=== PATIENT | male | born 1950 | race Caucasian/White ===

== ENCOUNTER 2022-03-09 10:00 | Inpatient (IN) | payer MEDICARE, OTHER ==
[~2022-03-09] VITALS: Ht 185.4 cm; Wt 136.1 kg
[2022-03-09] MEDS ORDERED: SPIRONOLACTONE25 MG PO (10:38)
[2022-03-09 10:39] LABS: BASOPHILS % 0.2 % (0.0-1.0); HEMOGLOBIN 10.9 g/dL (14.0-18.0); LYMPHOCYTES # (AUTO) 0.6 (1.0-3.2); LYMPHOCYTES % 10.7 % (18.0-39.1); MEAN CORPUSCULAR HEMOGLOBIN 29.9 pg (28-32); MEAN CORPUSCULAR VOLUME 90.4 fL (81-99); MONOCYTES # (AUTO) 0.6 (0.2-0.8); MONOCYTES % 11.5 % (4.4-11.3); PLATELET COUNT 119 x10e3/uL (140-360); RED BLOOD COUNT 3.65 x10e6/uL (4.3-5.7); RED CELL DISTRIBUTION WIDTH 12.2 % (11.7-14.4)
[2022-03-09] MEDS ORDERED: METOPROLOL SUCC50 MG PO (10:39)
[2022-03-09] MEDS ORDERED: DOXAZOSIN MESYLA2 MG PO (10:39)
[2022-03-09] MEDS ORDERED: ATORVASTATIN CA20 MG PO (10:40)
[2022-03-09] MEDS ORDERED: DIOVAN80 MG PO (10:40)
[2022-03-09] MEDS ORDERED: WEGOVY2.4 MG/0.7 (10:44)
[2022-03-09 10:55] LABS: ALBUMIN 2.8 g/dL (3.5-5.0); ALBUMIN/GLOBULIN RATIO 0.7 (0.8-2.0); ANION GAP 16.9 mmol/L (8-16); CALCIUM 7.6 mg/dL (8.4-10.2); CREATININE, SERUM 3.13 mg/dL (0.72-1.25); POTASSIUM 4.9 mmol/L (3.5-5.1)
[2022-03-09 11:16] LABS: FREE T4 (FREE THYROXINE) 0.84 ng/dL (0.8-1.8); THYROID STIMULATING HORMONE 2.057 uIU/mL (0.350-4.940)
[2022-03-09] MEDS: SODIUM CHLORIDE 0.9% 1000ML 1,000 ML IV SCH ×2 (11:45→21:10)
[2022-03-09 14:08] VITALS: BP 84/50
[2022-03-09 15:11] VITALS: BP 84/50
[2022-03-09 16:54] VITALS: BP 97/63
[2022-03-09 19:30] VITALS: BP 116/61
[2022-03-09 20:00] VITALS: BP 116/67
[2022-03-10] VITALS (9 sets, daily range): BP systolic 98–142; BP diastolic 57–79
[2022-03-10 03:51] LABS: CLARITY,URINE SL CLOUDY (CLEAR); COLOR,URINE YELLOW (YELLOW)
[2022-03-10 03:52] LABS: KETONES,URINE TRACE (NEGATIVE); LEUKOCYTE ESTERASE ,URINE NEGATIVE (NEGATIVE); NITRITE,URINE NEGATIVE (NEGATIVE); PROTEIN,URINE DIPSTICK 1+ (NEGATIVE); URINE UROBILINOGEN 0.2 mg/dL (0.2 - 1)
[2022-03-10 03:53] LABS: BACTERIA,URINE FEW /HPF; EPITHELIAL CELLS,URINE RARE /LPF; RBC,URINE 0-5 /HPF (0-5); WBC,URINE (MAN) 0-5 /HPF (0-5)
[2022-03-10 03:54] LABS: AMORPHOUS SEDIMENT,URINE MODERATE (FEW)
[2022-03-10 07:06] LABS: BASOPHILS % 0.5 % (0.0-1.0); HEMATOCRIT 29.9 % (38.2-49.6); HEMOGLOBIN 10.2 g/dL (14.0-18.0); LYMPHOCYTES # (AUTO) 0.6 (1.0-3.2); LYMPHOCYTES % 15.5 % (18.0-39.1); MEAN CORPUSCULAR HEMOGLOBIN 30.4 pg (28-32); MEAN CORPUSCULAR HGB CONC 34.1 g/dL (31-35); MONOCYTES # (AUTO) 0.4 (0.2-0.8); MONOCYTES % 11.5 % (4.4-11.3); NEUTROPHILS # (AUTO) 2.7 (2.1-6.9); PLATELET COUNT 114 x10e3/uL (140-360); RED BLOOD COUNT 3.36 x10e6/uL (4.3-5.7); RED CELL DISTRIBUTION WIDTH 12.3 % (11.7-14.4)
[2022-03-10 07:21] LABS: ANION GAP 16.8 mmol/L (8-16); CALCIUM 7.7 mg/dL (8.4-10.2); CREATININE, SERUM 3.51 mg/dL (0.72-1.25); POTASSIUM 4.8 mmol/L (3.5-5.1)
[2022-03-10] MEDS: SODIUM CHLORIDE 0.9% 1000ML 1,000 ML IV SCH ×2 (08:30→21:16)
[2022-03-10 15:06] LABS: BASOPHILS % 0.3 % (0.0-1.0); HEMATOCRIT 32.3 % (38.2-49.6); HEMOGLOBIN 10.7 g/dL (14.0-18.0); LYMPHOCYTES # (AUTO) 0.6 (1.0-3.2); LYMPHOCYTES % 15.5 % (18.0-39.1); MEAN CORPUSCULAR HGB CONC 33.1 g/dL (31-35); MEAN CORPUSCULAR VOLUME 90.5 fL (81-99); MONOCYTES # (AUTO) 0.4 (0.2-0.8); MONOCYTES % 10.6 % (4.4-11.3); NEUTROPHILS # (AUTO) 2.8 (2.1-6.9); NEUTROPHILS % 73.1 % (38.7-80.0); PLATELET COUNT 105 x10e3/uL (140-360); RED BLOOD COUNT 3.57 x10e6/uL (4.3-5.7); RED CELL DISTRIBUTION WIDTH 12.6 % (11.7-14.4)
[2022-03-10 18:25] LABS: CREATININE,URINE RANDOM 157.14 mg/dL (63-166); TOTAL PROTEIN, URINE 13.5 mg/dL (1-14)
[2022-03-10 19:06] LABS: EOSINOPHIL SMEAR,URINE NONE SEEN (NONE SEEN)
[2022-03-11] VITALS: BP 119/69
[2022-03-11 04:00] VITALS: BP 113/58
[2022-03-11 06:01] LABS: ANION GAP 15.6 mmol/L (8-16); CALCIUM 7.4 mg/dL (8.4-10.2); CREATININE, SERUM 2.85 mg/dL (0.72-1.25); POTASSIUM 4.6 mmol/L (3.5-5.1)
[2022-03-11 08:21] VITALS: BP 106/62
[2022-03-11 12:10] VITALS: BP_SYST 106; BP_SYST 115; BP_DIAS 62; BP_DIAS 63
[2022-03-11 16:44] VITALS: BP 104/60
[2022-03-11 20:00] VITALS: BP 131/63
[2022-03-12] VITALS (8 sets, daily range): BP systolic 101–163; BP diastolic 51–75
[2022-03-12 05:26] LABS: BASOPHILS % 0.4 % (0.0-1.0); HEMATOCRIT 30.5 % (38.2-49.6); HEMOGLOBIN 10.3 g/dL (14.0-18.0); LYMPHOCYTES # (AUTO) 0.7 (1.0-3.2); LYMPHOCYTES % 12.2 % (18.0-39.1); MEAN CORPUSCULAR HEMOGLOBIN 29.9 pg (28-32); MEAN CORPUSCULAR HGB CONC 33.8 g/dL (31-35); MEAN CORPUSCULAR VOLUME 88.4 fL (81-99); MONOCYTES # (AUTO) 0.4 (0.2-0.8); MONOCYTES % 6.5 % (4.4-11.3); NEUTROPHILS # (AUTO) 4.4 (2.1-6.9); NEUTROPHILS % 80.2 % (38.7-80.0); PLATELET COUNT 89 x10e3/uL (140-360); RED BLOOD COUNT 3.45 x10e6/uL (4.3-5.7); RED CELL DISTRIBUTION WIDTH 12.5 % (11.7-14.4)
[2022-03-12 06:01] LABS: ANION GAP 16.3 mmol/L (8-16); CALCIUM 7.4 mg/dL (8.4-10.2); CREATININE, SERUM 2.67 mg/dL (0.72-1.25); POTASSIUM 4.3 mmol/L (3.5-5.1)
[2022-03-12] MEDS ORDERED: DEXTROSE 50% SYRINGE 50 ML IV PRN (09:00)
[2022-03-12] MEDS ORDERED: CEFTRIAXONE 1 GM VIAL ONE (09:27)
[2022-03-12] MEDS ORDERED: METHYLPREDNISOLONE SOD SUCC 40 MG/ML VIAL 1ML IV ONE (09:30)
[2022-03-12] MEDS: GUAIFENESIN/CODEINE 5 ML LIQD PO PRN (10:10)
[2022-03-12] MEDS: INSULIN REGULAR, HUMAN 100 UNIT/1 ML SQ SCH ×3 (11:30→20:49)
[2022-03-13] VITALS (36 sets, daily range): BP systolic 60–126; BP diastolic 28–84
[2022-03-13 05:51] LABS: ANION GAP 14.6 mmol/L (8-16); CALCIUM 7.6 mg/dL (8.4-10.2); CREATININE, SERUM 2.58 mg/dL (0.72-1.25); POTASSIUM 4.6 mmol/L (3.5-5.1)
[2022-03-13] MEDS: GUAIFENESIN/CODEINE 5 ML LIQD PO PRN ×2 (06:50→19:50)
[2022-03-13 08:56] LABS: BASOPHILS % 0.2 % (0.0-1.0); HEMATOCRIT 29.5 % (38.2-49.6); HEMOGLOBIN 9.7 g/dL (14.0-18.0); LYMPHOCYTES # (AUTO) 0.4 (1.0-3.2); LYMPHOCYTES % 7.5 % (18.0-39.1); MEAN CORPUSCULAR HEMOGLOBIN 29.8 pg (28-32); MEAN CORPUSCULAR HGB CONC 32.9 g/dL (31-35); MEAN CORPUSCULAR VOLUME 90.5 fL (81-99); MONOCYTES # (AUTO) 0.3 (0.2-0.8); MONOCYTES % 5.9 % (4.4-11.3); NEUTROPHILS # (AUTO) 4.4 (2.1-6.9); NEUTROPHILS % 85.8 % (38.7-80.0); PLATELET COUNT 84 x10e3/uL (140-360); RED BLOOD COUNT 3.26 x10e6/uL (4.3-5.7); RED CELL DISTRIBUTION WIDTH 12.9 % (11.7-14.4)
[2022-03-13] MEDS ORDERED: METOPROLOL SUCCINATE 50 MG TAB XL PO SCH (09:00)
[2022-03-13] MEDS ORDERED: MIDAZOLAM HCL 2 MG/2 ML VIAL IV STA (10:57)
[2022-03-13] MEDS ORDERED: ACETAMINOPHEN 1000 MG/100 ML IV STA (11:22)
[2022-03-13] MEDS ORDERED: SODIUM CHLORIDE 0.9% 1000ML 1,000 ML ONE (11:27)
[2022-03-13] MEDS: INSULIN REGULAR, HUMAN 100 UNIT/1 ML SQ SCH ×4 (11:30→21:42)
[2022-03-13 11:31] LABS: BASOPHILS % 0.3 % (0.0-1.0); EOSINOPHILS % 0.1 % (0.0-6.0); HEMATOCRIT 31.7 % (38.2-49.6); LYMPHOCYTES # (AUTO) 2.3 (1.0-3.2); LYMPHOCYTES % 20.8 % (18.0-39.1); MEAN CORPUSCULAR HEMOGLOBIN 29.4 pg (28-32); MEAN CORPUSCULAR HGB CONC 31.5 g/dL (31-35); MEAN CORPUSCULAR VOLUME 93.2 fL (81-99); MONOCYTES # (AUTO) 0.7 (0.2-0.8); MONOCYTES % 6.2 % (4.4-11.3); NEUTROPHILS # (AUTO) 7.8 (2.1-6.9); NEUTROPHILS % 71.9 % (38.7-80.0); PLATELET COUNT 116 x10e3/uL (140-360); RED CELL DISTRIBUTION WIDTH 13.2 % (11.7-14.4)
[2022-03-13] MEDS ORDERED: SODIUM CHLORIDE 0.9% 1000ML 1,000 ML IV ONE (11:45)
[2022-03-13 12:01] LABS: CREATINE KINASE MB 7.7 ng/mL (0-5.0)
[2022-03-13 12:25] LABS: ALBUMIN 2.6 g/dL (3.5-5.0); ALBUMIN/GLOBULIN RATIO 0.7 (0.8-2.0); ANION GAP 29.1 mmol/L (8-16); CALCIUM 7.6 mg/dL (8.4-10.2); CREATININE, SERUM 3.35 mg/dL (0.72-1.25); POTASSIUM 5.1 mmol/L (3.5-5.1)
[2022-03-13] MEDS ORDERED: SODIUM CHLORIDE 0.9% 1000ML 1,000 ML IV SCH (12:30)
[2022-03-13] MEDS ORDERED: SODIUM CHLORIDE 0.45% 1,000 ML IV SCH (12:45)
[2022-03-13] MEDS: SODIUM BICARBONATE 8.4% 50 ML in SODIUM CHLORIDE 0.45% 1,000 ML IV SCH ×2 (12:52→20:15)
[2022-03-13] MEDS ORDERED: Vancomycin IV 1 GM in SODIUM CHLORIDE 0.9% 250ML 250 ML IV ONE (13:00)
[2022-03-13] MEDS ORDERED: LIDOCAINE HCL 1% LOCAL INJ 20 ML VIAL ONE (13:45)
[2022-03-13] MEDS ORDERED: HEPARIN SOD (PORCINE) 1000 UNIT/ML SDV ONE ×2 (14:39)
[2022-03-13] MEDS ORDERED: NOREPINEPHRINE 8 MG/D5W 250 ML 250 ML IV SCH (15:15)
[2022-03-13] MEDS ORDERED: MAGNESIUM SULFATE 2GM/50ML 50 ML IV ONE (16:00)
[2022-03-13] MEDS ORDERED: MAGNESIUM OXIDE 400 MG TAB PO ONE (16:20)
[2022-03-13 16:47] LABS: ANION GAP 20.2 mmol/L (8-16); CREATININE, SERUM 3.27 mg/dL (0.72-1.25); POTASSIUM 4.2 mmol/L (3.5-5.1)
[2022-03-13 16:49] LABS: CALCIUM 6.9 mg/dL (8.4-10.2)
[2022-03-13] MEDS ORDERED: HYDROCORTISONE SOD SUCCINATE 100 MG VIAL IV ONE (18:10)
[2022-03-13] MEDS: ACETAMINOPHEN 325 MG TAB PO PRN (19:50)
[2022-03-13] MEDS ORDERED: CALCIUM CHLORIDE 13.6 MEQ in SODIUM CHLORIDE 0.9% 100 ML IV ONE (20:10)
[2022-03-14] VITALS (53 sets, daily range): BP systolic 62–135; BP diastolic 43–116
[2022-03-14] MEDS: SODIUM BICARBONATE 8.4% 50 ML in SODIUM CHLORIDE 0.45% 1,000 ML IV SCH ×3 (03:20→16:43)
[2022-03-14 05:55] LABS: BASOPHILS % 0.2 % (0.0-1.0); HEMATOCRIT 26.9 % (38.2-49.6); HEMOGLOBIN 8.8 g/dL (14.0-18.0); LYMPHOCYTES # (AUTO) 0.3 (1.0-3.2); LYMPHOCYTES % 5.1 % (18.0-39.1); MEAN CORPUSCULAR HEMOGLOBIN 29.3 pg (28-32); MEAN CORPUSCULAR HGB CONC 32.7 g/dL (31-35); MEAN CORPUSCULAR VOLUME 89.7 fL (81-99); MONOCYTES # (AUTO) 0.2 (0.2-0.8); MONOCYTES % 2.8 % (4.4-11.3); NEUTROPHILS # (AUTO) 5.5 (2.1-6.9); NEUTROPHILS % 91.2 % (38.7-80.0); PLATELET COUNT 71 x10e3/uL (140-360); RED CELL DISTRIBUTION WIDTH 13.1 % (11.7-14.4)
[2022-03-14 06:24] LABS: ANION GAP 14.7 mmol/L (8-16); CALCIUM 7.3 mg/dL (8.4-10.2); CREATININE, SERUM 3.03 mg/dL (0.72-1.25); POTASSIUM 4.7 mmol/L (3.5-5.1)
[2022-03-14 08:42] LABS: BAND NEUTROPHILS % (MANUAL) 10 %; LYMPHOCYTES % (MANUAL) 4 % (19-48); METAMYELOCYTES % (MANUAL) 2 % (0-0); MONOCYTES % (MANUAL) 4 % (3.4-9.0); MYELOCYTES % (MANUAL) 1 % (0-0); NEUTROPHILS % (MANUAL) 79 % (40-74)
[2022-03-14] MEDS: INSULIN REGULAR, HUMAN 100 UNIT/1 ML SQ SCH ×4 (08:42→20:49)
[2022-03-14 08:43] LABS: PLATELET MORPHOLOGY COMMENT RARE EDTA CLUMPING
[2022-03-14 08:45] LABS: PLATELET ESTIMATE MODERATELY DECREASED
[2022-03-14] MEDS: GUAIFENESIN/CODEINE 5 ML LIQD PO PRN (13:22)
[2022-03-14] MEDS: ACETAMINOPHEN 325 MG TAB PO PRN (15:46)
[2022-03-14 16:44] LABS: ABG PCO2 23 mmHg (35-45); ABG PH 7.42 (7.35-7.45)
[2022-03-14 16:45] LABS: ABG HCO3 15 mmol/L (22-26); ABG PO2 63 mmHg (80-105); ABG TCO2 16
[2022-03-14] MEDS: NOREPINEPHRINE 8 MG/D5W 250 ML 250 ML IV PRN (17:00)
[2022-03-14] MEDS ORDERED: HYDROCORTISONE SOD SUCCINATE 100 MG VIAL IV ONE (18:30)
[2022-03-14] MEDS: SODIUM CHLORIDE 0.9% 1000ML 1,000 ML IV SCH (18:35)
[2022-03-14 19:00] LABS: HIV 1&2 AB SCREEN NON-REACTIVE (NONREACTIVE)
[2022-03-15] VITALS (85 sets, daily range): BP systolic 76–127; BP diastolic 30–91
[2022-03-15] MEDS: SODIUM CHLORIDE 0.9% 1000ML 1,000 ML IV SCH ×3 (02:12→23:30)
[2022-03-15] MEDS: GUAIFENESIN/CODEINE 5 ML LIQD PO PRN ×2 (05:10→14:39)
[2022-03-15 06:57] LABS: BASOPHILS % 0.1 % (0.0-1.0); HEMATOCRIT 29.1 % (38.2-49.6); HEMOGLOBIN 9.7 g/dL (14.0-18.0); LYMPHOCYTES # (AUTO) 0.6 (1.0-3.2); LYMPHOCYTES % 6.7 % (18.0-39.1); MEAN CORPUSCULAR HEMOGLOBIN 29.8 pg (28-32); MEAN CORPUSCULAR HGB CONC 33.3 g/dL (31-35); MEAN CORPUSCULAR VOLUME 89.3 fL (81-99); MONOCYTES # (AUTO) 0.3 (0.2-0.8); MONOCYTES % 2.8 % (4.4-11.3); NEUTROPHILS # (AUTO) 8.3 (2.1-6.9); NEUTROPHILS % 89.8 % (38.7-80.0); PLATELET COUNT 73 x10e3/uL (140-360); RED BLOOD COUNT 3.26 x10e6/uL (4.3-5.7); RED CELL DISTRIBUTION WIDTH 13.2 % (11.7-14.4)
[2022-03-15 07:22] LABS: ALBUMIN 2.1 g/dL (3.5-5.0); ALBUMIN/GLOBULIN RATIO 0.7 (0.8-2.0); ANION GAP 15.5 mmol/L (8-16); CREATININE, SERUM 2.51 mg/dL (0.72-1.25); POTASSIUM 4.5 mmol/L (3.5-5.1)
[2022-03-15 07:23] LABS: CALCIUM 6.9 mg/dL (8.4-10.2)
[2022-03-15] MEDS: INSULIN REGULAR, HUMAN 100 UNIT/1 ML SQ SCH ×4 (08:00→21:23)
[2022-03-15] MEDS: NOREPINEPHRINE 8 MG/D5W 250 ML 250 ML IV PRN (08:05)
[2022-03-15 08:31] LABS: FERRITIN 23128.88 ng/mL (21.81-274.66)
[2022-03-15 08:39] LABS: BAND NEUTROPHILS % (MANUAL) 1 %; LYMPHOCYTES % (MANUAL) 3 % (19-48); NEUTROPHILS % (MANUAL) 96 % (40-74); PLATELET ESTIMATE MODERATELY DECREASED; PLATELET MORPHOLOGY COMMENT NORMAL; RBC MORPHOLOGY COMMENT NORMAL
[2022-03-15] MEDS ORDERED: CALCIUM GLUC 1 G/50 ML NACL 100 ML IV ONE (11:00)
[2022-03-15] MEDS: AMIODARONE HCL 200 MG TAB PO SCH (11:50)
[2022-03-15] MEDS: ACETAMINOPHEN 325 MG TAB PO PRN (14:39)
[2022-03-15] MEDS ORDERED: ALBUMIN 5% 0.05 GM/ML BTL IV STA (14:47)
[2022-03-15] MEDS ORDERED: ALBUMIN 5% 250ML 500 ML IV ONE (15:30)
[2022-03-15] MEDS: HYDROCORTISONE SOD SUCCINATE 100 MG VIAL IV SCH ×2 (16:54→23:30)
[2022-03-15 21:34] LABS: CLARITY,URINE SL CLOUDY (CLEAR); COLOR,URINE YELLOW (YELLOW); KETONES,URINE NEGATIVE (NEGATIVE); LEUKOCYTE ESTERASE ,URINE NEGATIVE (NEGATIVE); NITRITE,URINE NEGATIVE (NEGATIVE); PROTEIN,URINE DIPSTICK NEGATIVE (NEGATIVE); URINE UROBILINOGEN 0.2 mg/dL (0.2 - 1)
[2022-03-15 21:46] LABS: AMORPHOUS SEDIMENT,URINE MODERATE (FEW); BACTERIA,URINE MANY /HPF; EPITHELIAL CELLS,URINE FEW /LPF; RBC,URINE >50 /HPF (0-5); RENAL EPITHELIAL CELLS,URINE FEW; URIC ACID CRYSTALS,URINE MANY (FEW)
[2022-03-16] VITALS (68 sets, daily range): BP systolic 78–142; BP diastolic 49–100
[2022-03-16] MEDS: NOREPINEPHRINE 8 MG/D5W 250 ML 250 ML IV PRN (04:55)
[2022-03-16 06:37] LABS: BASOPHILS % 0.1 % (0.0-1.0); HEMATOCRIT 26.4 % (38.2-49.6); HEMOGLOBIN 8.7 g/dL (14.0-18.0); LYMPHOCYTES # (AUTO) 0.9 (1.0-3.2); LYMPHOCYTES % 12.6 % (18.0-39.1); MEAN CORPUSCULAR HEMOGLOBIN 29.4 pg (28-32); MEAN CORPUSCULAR VOLUME 89.2 fL (81-99); MONOCYTES # (AUTO) 0.3 (0.2-0.8); MONOCYTES % 3.7 % (4.4-11.3); NEUTROPHILS # (AUTO) 5.6 (2.1-6.9); NEUTROPHILS % 82.7 % (38.7-80.0); PLATELET COUNT 62 x10e3/uL (140-360); RED BLOOD COUNT 2.96 x10e6/uL (4.3-5.7); RED CELL DISTRIBUTION WIDTH 13.3 % (11.7-14.4)
[2022-03-16 07:02] LABS: ALBUMIN 2.2 g/dL (3.5-5.0); ALBUMIN/GLOBULIN RATIO 0.8 (0.8-2.0); ANION GAP 14.5 mmol/L (8-16); CREATININE, SERUM 2.08 mg/dL (0.72-1.25); POTASSIUM 4.5 mmol/L (3.5-5.1)
[2022-03-16 07:37] LABS: MAGNESIUM 1.6 MG/DL (1.3-2.1); PHOSPHORUS 2.9 MG/DL (2.3-4.7)
[2022-03-16 08:10] LABS: BAND NEUTROPHILS % (MANUAL) 4 %; LYMPHOCYTES % (MANUAL) 2 % (19-48); MONOCYTES % (MANUAL) 2 % (3.4-9.0); NEUTROPHILS % (MANUAL) 90 % (40-74)
[2022-03-16 08:11] LABS: PLATELET ESTIMATE MODERATELY DECREASED; PLATELET MORPHOLOGY COMMENT NORMAL; RBC MORPHOLOGY COMMENT NORMAL
[2022-03-16] MEDS: HYDROCORTISONE SOD SUCCINATE 100 MG VIAL IV SCH (09:20)
[2022-03-16] MEDS: IRON SUCROSE 100 MG in SODIUM CHLORIDE 0.9% 100 ML IV SCH (09:20)
[2022-03-16] MEDS: SUCRALFATE 1 GM TAB PO SCH ×4 (09:20→21:05)
[2022-03-16] MEDS: AMIODARONE HCL 200 MG TAB PO SCH (09:20)
[2022-03-16] MEDS: INSULIN REGULAR, HUMAN 100 UNIT/1 ML SQ SCH ×4 (09:22→21:07)
[2022-03-16] MEDS ORDERED: ALBUMIN 5% 0.05 GM/ML BTL IV ONE (12:00)
[2022-03-16] MEDS: SODIUM CHLORIDE 0.9% 1000ML 1,000 ML IV SCH (12:27)
[2022-03-16] MEDS ORDERED: SODIUM CHLORIDE 0.9% 500ML 500 ML IV ONE (12:30)
[2022-03-16] MEDS ORDERED: ALBUMIN 5% 250ML 500 ML IV ONE (12:30)
[2022-03-16] MEDS ORDERED: VASOPRESSIN 60 UNIT in DEXTROSE 5% 50ML 57 ML IV PRN (17:15)
[2022-03-16 18:41] LABS: FREE THYROXINE INDEX 1.31 (1.4-3.8); THYROID STIMULATING HORMONE 0.431 uIU/mL (0.350-4.940)
[2022-03-16] MEDS: GUAIFENESIN/CODEINE 5 ML LIQD PO PRN (20:31)
[2022-03-17] VITALS (43 sets, daily range): BP systolic 80–130; BP diastolic 53–87
[2022-03-17] MEDS: GUAIFENESIN/CODEINE 5 ML LIQD PO PRN ×4 (02:09→20:00)
[2022-03-17] MEDS: SODIUM CHLORIDE 0.9% 1000ML 1,000 ML IV SCH ×2 (05:08→14:53)
[2022-03-17 05:11] LABS: ALBUMIN 2.4 g/dL (3.5-5.0); ANION GAP 14.2 mmol/L (8-16); CALCIUM 7.1 mg/dL (8.4-10.2); CREATININE, SERUM 1.69 mg/dL (0.72-1.25); MAGNESIUM 1.6 MG/DL (1.3-2.1); POTASSIUM 4.2 mmol/L (3.5-5.1)
[2022-03-17 05:12] LABS: ALBUMIN/GLOBULIN RATIO 0.9 (0.8-2.0)
[2022-03-17] MEDS: SUCRALFATE 1 GM TAB PO SCH ×4 (07:31→21:30)
[2022-03-17] MEDS: INSULIN REGULAR, HUMAN 100 UNIT/1 ML SQ SCH ×4 (07:33→21:32)
[2022-03-17] MEDS: IRON SUCROSE 100 MG in SODIUM CHLORIDE 0.9% 100 ML IV SCH (08:20)
[2022-03-17] MEDS: AMIODARONE HCL 200 MG TAB PO SCH (08:21)
[2022-03-17] MEDS: ACETAMINOPHEN 325 MG TAB PO PRN ×2 (08:59→18:36)
[2022-03-17 15:03] LABS: HEMATOCRIT 26.3 % (38.2-49.6); HEMOGLOBIN 8.5 g/dL (14.0-18.0); MEAN CORPUSCULAR HEMOGLOBIN 29.3 pg (28-32); MEAN CORPUSCULAR HGB CONC 32.3 g/dL (31-35); MEAN CORPUSCULAR VOLUME 90.7 fL (81-99); PLATELET COUNT 55 x10e3/uL (140-360); RED CELL DISTRIBUTION WIDTH 13.6 % (11.7-14.4)
[2022-03-17 16:15] LABS: BAND NEUTROPHILS % (MANUAL) 1 %; LYMPHOCYTES % (MANUAL) 17 % (19-48); MONOCYTES % (MANUAL) 5 % (3.4-9.0); MYELOCYTES % (MANUAL) 1 % (0-0); NEUTROPHILS % (MANUAL) 76 % (40-74); PLATELET ESTIMATE MODERATELY DECREASED; PLATELET MORPHOLOGY COMMENT NORMAL; RBC MORPHOLOGY COMMENT NORMAL
[2022-03-18] VITALS (25 sets, daily range): BP systolic 81–120; BP diastolic 53–84
[2022-03-18] MEDS: ACETAMINOPHEN 325 MG TAB PO PRN ×2 (01:58→11:49)
[2022-03-18 06:34] LABS: BASOPHILS % 0.5 % (0.0-1.0); EOSINOPHILS # (AUTO) 0.1 (0.0-0.4); EOSINOPHILS % 2.3 % (0.0-6.0); HEMATOCRIT 26.6 % (38.2-49.6); HEMOGLOBIN 8.7 g/dL (14.0-18.0); LYMPHOCYTES # (AUTO) 1.7 (1.0-3.2); LYMPHOCYTES % 39.9 % (18.0-39.1); MEAN CORPUSCULAR HEMOGLOBIN 29.3 pg (28-32); MEAN CORPUSCULAR HGB CONC 32.7 g/dL (31-35); MEAN CORPUSCULAR VOLUME 89.6 fL (81-99); MONOCYTES # (AUTO) 0.2 (0.2-0.8); MONOCYTES % 5.6 % (4.4-11.3); NEUTROPHILS # (AUTO) 2.1 (2.1-6.9); NEUTROPHILS % 48.5 % (38.7-80.0); RED BLOOD COUNT 2.97 x10e6/uL (4.3-5.7); RED CELL DISTRIBUTION WIDTH 13.9 % (11.7-14.4)
[2022-03-18 06:42] LABS: PLATELET COUNT 49 x10e3/uL (140-360)
[2022-03-18 07:02] LABS: ALBUMIN/GLOBULIN RATIO 0.8 (0.8-2.0); ANION GAP 12.2 mmol/L (8-16); CREATININE, SERUM 1.67 mg/dL (0.72-1.25); POTASSIUM 4.2 mmol/L (3.5-5.1)
[2022-03-18 07:06] LABS: CALCIUM 6.8 mg/dL (8.4-10.2)
[2022-03-18] MEDS: INSULIN REGULAR, HUMAN 100 UNIT/1 ML SQ SCH ×4 (07:30→21:00)
[2022-03-18 08:06] LABS: BAND NEUTROPHILS % (MANUAL) 2 %; EOSINOPHILS % (MANUAL) 4 % (0-7); LYMPHOCYTES % (MANUAL) 13 % (19-48); METAMYELOCYTES % (MANUAL) 3 % (0-0); MONOCYTES % (MANUAL) 6 % (3.4-9.0); NEUTROPHILS % (MANUAL) 72 % (40-74)
[2022-03-18 08:07] LABS: PLATELET ESTIMATE MARKEDLY DECREASED; PLATELET MORPHOLOGY COMMENT NORMAL; RBC MORPHOLOGY COMMENT NORMAL
[2022-03-18] MEDS: SUCRALFATE 1 GM TAB PO SCH ×4 (08:51→21:16)
[2022-03-18] MEDS: IRON SUCROSE 100 MG in SODIUM CHLORIDE 0.9% 100 ML IV SCH (08:51)
[2022-03-18] MEDS ORDERED: LACTATED RINGER'S 500 ML INJ ONE (10:15)
[2022-03-18] MEDS: GUAIFENESIN/CODEINE 5 ML LIQD PO PRN (11:49)
[2022-03-18] MEDS: METHYLPREDNISOLONE SOD SUCC 40 MG/ML VIAL 1ML IV SCH (21:16)
[2022-03-19] VITALS (15 sets, daily range): BP systolic 105–151; BP diastolic 65–85
[2022-03-19 06:56] LABS: BASOPHILS % 0.5 % (0.0-1.0); EOSINOPHILS % 0.2 % (0.0-6.0); HEMATOCRIT 27.1 % (38.2-49.6); HEMOGLOBIN 8.6 g/dL (14.0-18.0); LYMPHOCYTES # (AUTO) 2.5 (1.0-3.2); LYMPHOCYTES % 43.9 % (18.0-39.1); MEAN CORPUSCULAR HEMOGLOBIN 29.2 pg (28-32); MEAN CORPUSCULAR HGB CONC 31.7 g/dL (31-35); MEAN CORPUSCULAR VOLUME 91.9 fL (81-99); MONOCYTES # (AUTO) 0.1 (0.2-0.8); MONOCYTES % 1.6 % (4.4-11.3); NEUTROPHILS % 52.4 % (38.7-80.0); PLATELET COUNT 56 x10e3/uL (140-360); RED BLOOD COUNT 2.95 x10e6/uL (4.3-5.7); RED CELL DISTRIBUTION WIDTH 13.6 % (11.7-14.4)
[2022-03-19 07:18] LABS: ALBUMIN 2.1 g/dL (3.5-5.0); ALBUMIN/GLOBULIN RATIO 0.7 (0.8-2.0); ANION GAP 12.1 mmol/L (8-16); CALCIUM 7.1 mg/dL (8.4-10.2); CREATININE, SERUM 1.64 mg/dL (0.72-1.25)
[2022-03-19 07:24] LABS: POTASSIUM 5.1 mmol/L (3.5-5.1)
[2022-03-19] MEDS: SUCRALFATE 1 GM TAB PO SCH ×4 (07:26→21:56)
[2022-03-19] MEDS: INSULIN REGULAR, HUMAN 100 UNIT/1 ML SQ SCH ×4 (07:28→21:00)
[2022-03-19 07:41] LABS: LYMPHOCYTES % (MANUAL) 10 % (19-48); MONOCYTES % (MANUAL) 1 % (3.4-9.0); NEUTROPHILS % (MANUAL) 87 % (40-74)
[2022-03-19 07:42] LABS: PLATELET ESTIMATE MARKEDLY DECREASED; PLATELET MORPHOLOGY COMMENT NORMAL; RBC MORPHOLOGY COMMENT NORMAL
[2022-03-19] MEDS: METHYLPREDNISOLONE SOD SUCC 40 MG/ML VIAL 1ML IV SCH ×2 (10:47→21:56)
[2022-03-19] MEDS: IRON SUCROSE 100 MG in SODIUM CHLORIDE 0.9% 100 ML IV SCH (10:48)
[2022-03-20] VITALS (20 sets, daily range): BP systolic 115–151; BP diastolic 69–91
[2022-03-20 06:48] LABS: BASOPHILS % 0.2 % (0.0-1.0); EOSINOPHILS % 0.2 % (0.0-6.0); HEMATOCRIT 26.6 % (38.2-49.6); HEMOGLOBIN 8.7 g/dL (14.0-18.0); LYMPHOCYTES # (AUTO) 1.8 (1.0-3.2); LYMPHOCYTES % 31.9 % (18.0-39.1); MEAN CORPUSCULAR HEMOGLOBIN 29.8 pg (28-32); MEAN CORPUSCULAR HGB CONC 32.7 g/dL (31-35); MEAN CORPUSCULAR VOLUME 91.1 fL (81-99); MONOCYTES # (AUTO) 0.2 (0.2-0.8); MONOCYTES % 2.7 % (4.4-11.3); NEUTROPHILS # (AUTO) 3.6 (2.1-6.9); NEUTROPHILS % 63.9 % (38.7-80.0); PLATELET COUNT 68 x10e3/uL (140-360); RED BLOOD COUNT 2.92 x10e6/uL (4.3-5.7); RED CELL DISTRIBUTION WIDTH 13.4 % (11.7-14.4)
[2022-03-20 07:13] LABS: ALBUMIN 2.1 g/dL (3.5-5.0); ALBUMIN/GLOBULIN RATIO 0.7 (0.8-2.0); ANION GAP 12.7 mmol/L (8-16); CALCIUM 7.1 mg/dL (8.4-10.2); CREATININE, SERUM 1.4 mg/dL (0.72-1.25); POTASSIUM 4.7 mmol/L (3.5-5.1)
[2022-03-20 07:51] LABS: BAND NEUTROPHILS % (MANUAL) 3 %; LYMPHOCYTES % (MANUAL) 9 % (19-48); MONOCYTES % (MANUAL) 1 % (3.4-9.0); NEUTROPHILS % (MANUAL) 87 % (40-74)
[2022-03-20 07:53] LABS: PLATELET ESTIMATE MARKEDLY DECREASED; PLATELET MORPHOLOGY COMMENT NORMAL; RBC MORPHOLOGY COMMENT NORMAL
[2022-03-20] MEDS: SUCRALFATE 1 GM TAB PO SCH ×4 (08:10→21:25)
[2022-03-20] MEDS: INSULIN REGULAR, HUMAN 100 UNIT/1 ML SQ SCH ×5 (08:13→21:31)
[2022-03-20] MEDS: IRON SUCROSE 100 MG in SODIUM CHLORIDE 0.9% 100 ML IV SCH (09:35)
[2022-03-20] MEDS: METHYLPREDNISOLONE SOD SUCC 40 MG/ML VIAL 1ML IV SCH (09:36)
[2022-03-21] VITALS (8 sets, daily range): BP systolic 110–171; BP diastolic 67–88
[2022-03-21 05:17] LABS: BASOPHILS % 0.2 % (0.0-1.0); EOSINOPHILS % 0.3 % (0.0-6.0); HEMATOCRIT 26.3 % (38.2-49.6); HEMOGLOBIN 8.6 g/dL (14.0-18.0); LYMPHOCYTES # (AUTO) 1.9 (1.0-3.2); LYMPHOCYTES % 28.1 % (18.0-39.1); MEAN CORPUSCULAR HEMOGLOBIN 29.7 pg (28-32); MEAN CORPUSCULAR HGB CONC 32.7 g/dL (31-35); MEAN CORPUSCULAR VOLUME 90.7 fL (81-99); MONOCYTES # (AUTO) 0.4 (0.2-0.8); MONOCYTES % 5.9 % (4.4-11.3); NEUTROPHILS # (AUTO) 4.3 (2.1-6.9); PLATELET COUNT 87 x10e3/uL (140-360); RED CELL DISTRIBUTION WIDTH 13.3 % (11.7-14.4)
[2022-03-21 05:34] LABS: ANION GAP 14.4 mmol/L (8-16); CALCIUM 7.3 mg/dL (8.4-10.2); CREATININE, SERUM 1.34 mg/dL (0.72-1.25); POTASSIUM 4.4 mmol/L (3.5-5.1)
[2022-03-21 06:11] LABS: LYMPHOCYTES % (MANUAL) 14 % (19-48); METAMYELOCYTES % (MANUAL) 3 % (0-0); MONOCYTES % (MANUAL) 4 % (3.4-9.0); NEUTROPHILS % (MANUAL) 75 % (40-74)
[2022-03-21 06:13] LABS: PLATELET ESTIMATE MODERATELY DECREASED; PLATELET MORPHOLOGY COMMENT NORMAL
[2022-03-21] MEDS: INSULIN REGULAR, HUMAN 100 UNIT/1 ML SQ SCH ×4 (08:23→21:00)
[2022-03-21] MEDS: SUCRALFATE 1 GM TAB PO SCH ×4 (08:30→21:00)
[2022-03-21] MEDS: PREDNISONE 20 MG TAB PO SCH (08:30)
[2022-03-21] MEDS: APIXAB 2.5 MG TABLET PO SCH ×2 (08:30→17:00)
[2022-03-22 05:39] VITALS: BP 157/74
[2022-03-22 06:52] LABS: BASOPHILS % 0.2 % (0.0-1.0); EOSINOPHILS % 0.4 % (0.0-6.0); HEMATOCRIT 26.1 % (38.2-49.6); HEMOGLOBIN 8.7 g/dL (14.0-18.0); LYMPHOCYTES # (AUTO) 1.7 (1.0-3.2); LYMPHOCYTES % 34.5 % (18.0-39.1); MEAN CORPUSCULAR HEMOGLOBIN 29.7 pg (28-32); MEAN CORPUSCULAR HGB CONC 33.3 g/dL (31-35); MEAN CORPUSCULAR VOLUME 89.1 fL (81-99); MONOCYTES # (AUTO) 0.4 (0.2-0.8); MONOCYTES % 8.5 % (4.4-11.3); NEUTROPHILS # (AUTO) 2.8 (2.1-6.9); NEUTROPHILS % 55.6 % (38.7-80.0); PLATELET COUNT 87 x10e3/uL (140-360); RED BLOOD COUNT 2.93 x10e6/uL (4.3-5.7); RED CELL DISTRIBUTION WIDTH 13.5 % (11.7-14.4)
[2022-03-22 07:12] LABS: ANION GAP 14.1 mmol/L (8-16); CALCIUM 7.5 mg/dL (8.4-10.2); CREATININE, SERUM 1.3 mg/dL (0.72-1.25); POTASSIUM 4.1 mmol/L (3.5-5.1)
[2022-03-22] MEDS: INSULIN REGULAR, HUMAN 100 UNIT/1 ML SQ SCH ×2 (07:30→11:30)
[2022-03-22 08:00] VITALS: BP 146/78
[2022-03-22] MEDS ORDERED: IRON-VITAMIN-MINERAL CAPSULE PO SCH (09:00)
[2022-03-22 09:01] LABS: LYMPHOCYTES % (MANUAL) 24 % (19-48); MONOCYTES % (MANUAL) 4 % (3.4-9.0); NEUTROPHILS % (MANUAL) 72 % (40-74)
[2022-03-22 09:02] LABS: PLATELET ESTIMATE MODERATELY DECREASED; PLATELET MORPHOLOGY COMMENT NORMAL; RBC MORPHOLOGY COMMENT NORMAL
[2022-03-22] MEDS: PREDNISONE 20 MG TAB PO SCH (09:15)
[2022-03-22] MEDS: APIXAB 2.5 MG TABLET PO SCH (09:15)
[2022-03-22] MEDS: SUCRALFATE 1 GM TAB PO SCH ×2 (09:15→12:26)
[2022-03-22 10:02] VITALS: BP 157/74
[2022-03-22] MEDS ORDERED: ELIQUIS2.5 MG PO (11:29)
[2022-03-22] MEDS ORDERED: PROTONIX40 MG/ML PO (11:29)
[2022-03-22] MEDS ORDERED: CARAFATE1 GM PO (11:29)
[2022-03-22] MEDS ORDERED: FEROCON CAPSUL1 EACH PO (11:29)
[2022-03-22 11:49] VITALS: BP 137/81
[2022-03-23] MEDS ORDERED: PANTOPRAZOLE SOD 40 MG TABEC PO SCH (07:30)
== END 2022-03-22 13:07 | disposition home or self-care (01) | DRG 871 ==
LOC: ER 10:12 → ERHOLD 11:32 → MED/SURG2 13:58 → ICU 03-13 11:29 → MED/SURG3 03-20 16:05
PROVIDERS: ADMIT Internal Medicine; ATTEND Internal Medicine
PROC: 3E03329 Introduction of Other Anti-infective into Peripheral Vein, Percutaneous Approach (ICD-10-PCS; 2022-03-10)
PROC: 3E043XZ Introduction of Vasopressor into Central Vein, Percutaneous Approach (ICD-10-PCS; principal; 2022-03-13)
PROC: 02H633Z Insertion of Infusion Device into Right Atrium, Percutaneous Approach (ICD-10-PCS; 2022-03-13)
PROC: 3E04329 Introduction of Other Anti-infective into Central Vein, Percutaneous Approach (ICD-10-PCS; 2022-03-13)
PROC: 02HV33Z Insertion of Infusion Device into Superior Vena Cava, Percutaneous Approach (ICD-10-PCS; 2022-03-18)
DX: A41.9 Sepsis, unspecified organism (principal); I50.33 Acute on chronic diastolic (congestive) heart failure; J18.9 Pneumonia, unspecified organism; N17.9 Acute kidney failure, unspecified; E87.2 Acidosis; E87.1 Hypo-osmolality and hyponatremia; I13.0 Hypertensive heart and chronic kidney disease with heart failure and stage 1 through stage 4 chronic kidney disease, or unspecified chronic kidney disease; E27.40 Unspecified adrenocortical insufficiency; R57.9 Shock, unspecified; D61.9 Aplastic anemia, unspecified; N18.9 Chronic kidney disease, unspecified; E11.22 Type 2 diabetes mellitus with diabetic chronic kidney disease; R19.7 Diarrhea, unspecified; K52.9 Noninfective gastroenteritis and colitis, unspecified; D69.6 Thrombocytopenia, unspecified; Z75.1 Person awaiting admission to adequate facility elsewhere; N18.32 Chronic kidney disease, stage 3b; D63.8 Anemia in other chronic diseases classified elsewhere; I48.0 Paroxysmal atrial fibrillation; Z74.09 Other reduced mobility; E66.01 Morbid (severe) obesity due to excess calories; Z68.39 Body mass index [BMI] 39.0-39.9, adult; R50.9 Fever, unspecified; Z20.822 Contact with and (suspected) exposure to COVID-19; R74.01 Elevation of levels of liver transaminase levels; E11.65 Type 2 diabetes mellitus with hyperglycemia; Z86.74 Personal history of sudden cardiac arrest; R65.20 Severe sepsis without septic shock
CPT/HCPCS: 0223U; 36415; 36556; 36569; 36600; 70450; 71045; 71250; 74176; 74470; 76700; 76770; 76937; 77001; 78580; 80048; 80053; 80192; 81001; 81015; 81050; 82010; 82088; 82140; 82270; 82533; 82550; 82553; 82570; 82728; 82805; 82948; 83540; 83605; 83630; 83735; 83880; 83993; 84100; 84156; 84165; 84244; 84436; 84439; 84443; 84466; 84479; 84484; 85007; 85025; 85027; 85379; 85597; 85598; 85613; 85651; 85730; 85732; 86021; 86022; 86039; 86140; 86146; 86147; 86148; 86160; 86200; 86225; 86431; 86592; 86644; 86645; 86663; 86664; 86665; 86777; 86778; 86849; 87040; 87045; 87086; 87116; 87177; 87324; 87385; 87390; 87400; 87420; 87449; 87536; 88184; 93005; 93306; 93970; 94799; 96361; 96372; 99251; 99284; A9540; C1752; C1769; G0433; G0435; J0696; J1644; J1720; J1756; J1817; J2001; J2185; J2250; J2920; J3370; J3475; J7030; J7040; J7050; J7121; J7512; P9045